=== PATIENT | female | born 1980 | race Caucasian/White ===

== ENCOUNTER 2019-09-04 16:51 | Emergency (ER) | payer BC ==
[2019-09-04 17:16] LABS: #Basophils 0.1 thou/uL (0.0-0.2); #Eosinphils 0.2 thou/uL (0.0-0.7); #Lymphocytes 1.3 thou/uL (1.20-3.40); #Monocytes 0.7 thou/uL (0.11-0.59); #Neutrophils 9.1 thou/uL (1.40-6.50); %Basophils 0.5 % (0.0-1.0); %Eosinophils 1.5 % (0.0-10.0); %Monocytes 6.4 % (0.0-10.0); %Neutrophils 80.5 % (42.0-75.0); Hemoglobin 14.2 g/dL (12.0-16.0); Mean Corpuscular HGB CONC 33.5 g/dL (32.0-36.0); Mean Corpuscular Hemoglobin 33.4 pg (27.0-31.0); Mean Corpuscular Volume 99.9 fL (78.0-98.0); Platelet Count 195 thou/uL (130-400); RBC Distribution Width 11.6 % (11.5-14.5); Red Blood Cell (RBC) Count 4.25 mill/uL (4.20-5.40); White Blood Cell (WBC) Count 11.4 thou/uL (4.8-10.8)
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
[2019-09-04 17:39] LABS: ALT (SGPT) 24 U/L (8-55); AST (SGOT) 28 U/L (5-34); Albumin 4.4 g/dL (3.5-5.0); Alkaline Phosphatase 68 U/L (40-110); Anion Gap 14 mmol/L (10-20); BUN (Urea Nitrogen) 23 mg/dL (7.0-18.7); Bilirubin, Total 0.9 mg/dL (0.2-1.2); Calc. Creatinine Clearance 0 mL/min (70-130); Calcium 9.2 mg/dL (7.8-10.44); Carbon Dioxide 22 mmol/L (22-29); Chloride 103 mmol/L (98-107); Estimated GFR-MDRD 71; Globulin 2.6 g/dL (2.4-3.5); Glucose 132 mg/dL (70-105); Sodium 135 mmol/L (136-145)
[2019-09-04] MEDS ORDERED: Adacel (T-DAP) 0.5 ML SYRINGE ONE (17:57)
[2019-09-04] MEDS ORDERED: Ondansetron PF 4 MG/2 ML Vial ONE (17:57)
[2019-09-04] MEDS ORDERED: Fentanyl 100 MCG/2 ML VIAL ONE (17:57)
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
--- NOTE | 2019-09-04 18:16 | CT ---
CT OF THE LEFT ELBOW WITHOUT CONTRAST: History: Evaluate for air in the joint space of the capsule. Laceration. FINDINGS: There is subcutaneous emphysema along the posterior aspect of the elbow. Subcutaneous emphysema is pr esumed to be due to laceration. There is a small amount of subcutaneous fluid. With regards to the rosalie int space, no evidence of effusion. Joint capsule does not appear to be distended. The distal humerus, radial head, and proximal ulna appear to be intact. No fracture. IMPRESSION: 1. Subcutaneous emphysema due to soft tissue injury/laceration. 2. No evidence of air in the joint space or joint capsular distention/joint capsule fluid. 3. No evidence of fracture. POS: [facility]
[2019-09-04] MEDS ORDERED: Morphine 4 MG/ML VIAL ONE (18:56)
[2019-09-04] MEDS ORDERED: Lidocaine 1% w/Epinephrine 1:100K 20 ML VIAL ONE (19:09)
[2019-09-04] MEDS ORDERED: Bacitracin 1 PK ONE (20:51)
== END 2019-09-04 21:18 | disposition home or self-care (01) ==
LOC: ERS 16:51
DX: S51.012A Laceration without foreign body of left elbow, initial encounter (principal); V86.59XA Driver of other special all-terrain or other off-road motor vehicle injured in nontraffic accident, initial encounter
CPT/HCPCS: 12002; 12032; 36415; 70450; 71045; 72125; 72170; 80053; 85025; 86850; 86900; 86901; 90471; 90715; 96361; 96365; 96375; J0690; J2270; J2405; J3010

== ENCOUNTER 2019-09-13 18:53 | Emergency (ER) | payer BC | END 2019-09-13 19:39 | disposition home or self-care (01) | LOC: ERS 18:53 | DX: S51.012D Laceration without foreign body of left elbow, subsequent encounter (principal); Z79.899 Other long term (current) drug therapy; Z79.891 Long term (current) use of opiate analgesic; V86.99XD Unspecified occupant of other special all-terrain or other off-road motor vehicle injured in nontraffic accident, subsequent encounter ==

== ENCOUNTER 2019-09-17 22:03 | Emergency (ER) | payer BC | END 2019-09-18 00:08 | disposition home or self-care (01) | LOC: ERS 22:03 | DX: S51.012D Laceration without foreign body of left elbow, subsequent encounter (principal); Z79.891 Long term (current) use of opiate analgesic; Z79.899 Other long term (current) drug therapy; W22.8XXD Striking against or struck by other objects, subsequent encounter | CPT/HCPCS: 99282 ==